=== PATIENT | male | born 1960 | race Caucasian/White ===

== ENCOUNTER 2016-10-28 13:08 | Emergency (ER) | payer BC ==
--- NOTE | 2016-10-28 14:48 | UC ---
Epistaxis Nasal HPI - HPI Summary HPI Summary: Pt had spontaneous R-sided nosebleed while awake this morning at 7am. Held a paper towel to it until it stopped about 5 minutes later. Close to noon today R nose bled again while pt was sitting at desk; denies blowing nose or picking at the time. Called [facility] and PCP, was unable to be seen today. Concerned as he has never had a spontaneous nosebleed before. Denies fevers, vomiting, rashes. No bleeding gums, bruising, blood in urine or stool. - History of Current Complaint Chief Complaint: UCGeneralIllness Stated Complaint: NOSEBLEEDS Time Seen by Provider: 10/28/16 14:17 Hx Obtained From: Patient Onset/Duration: Sudden Onset Timing: Minutes Severity Initially: Moderate Severity Currently: None Character: Heavy Alleviating Factor(s): Pressure Associated Signs And Symptoms: Negative: Bruising, Hematuria, Hematochezia, Nasal Discharge, Recent Abnormal Coagulation Studies - Allergies/Home Medications Allergies/Adverse Reactions: Allergies Allergy/AdvReac Type Severity Reaction Status Date / Time No Known Allergies Allergy Verified 10/28/16 13:53 Home Medications: Home Medications Imipramine HCl [Tofranil] 50 mg PO 10/28/16 [History] PMH/Surg Hx/FS Hx/Imm Hx Previously Healthy: Yes Psychological History Of: Reports: Anxiety - Surgical History Surgical History: Yes Surgery Procedure, Year, and Place: appy - Family History Known Family History: Negative: Blood Disorder - Social History Occupation: Employed Full-time Alcohol Use: Rare Substance Use Type: None Smoking Status (MU): Never Smoked Tobacco Review of Systems Constitutional: Negative Skin: Negative Eyes: Negative ENT: Epistaxis Respiratory: Negative Cardiovascular: Negative Gastrointestinal: Negative Genitourinary: Negative Motor: Negative Neurovascular: Negative Musculoskeletal: Negative Neurological: Negative Psychological: Negative All Other Systems Reviewed And Are Negative: Yes Physical Exam Triage Information Reviewed: Yes Appearance: Well-Appearing, No Pain Distress, Well-Nourished Vital Signs: Initial Vital Signs Temp 98.6 F 10/28/16 13:48 Pulse 102 10/28/16 13:48 Resp 20 10/28/16 13:48 BP 159/105 10/28/16 13:48 Pulse Ox 100 10/28/16 13:48 Vital Signs Reviewed: Yes Eye Exam: Normal Eyes: Positive: Conjunctiva Clear ENT Exam: Normal ENT: Positive: Normal ENT inspection, Hearing grossly normal, Pharynx normal, TMs normal, Other: - No septal hematoma, no site of bleeding noted. Dental Exam: Normal Neck exam: Normal Neck: Positive: Supple, Nontender, No Lymphadenopathy Respiratory Exam: Normal Respiratory: Positive: Chest non-tender, Lungs clear, Normal breath sounds, No respiratory distress, No accessory muscle use Cardiovascular Exam: Normal Cardiovascular: Positive: RRR - 90s, No Murmur Musculoskeletal Exam: Normal Neurological Exam: Normal Psychological Exam: Normal Skin Exam: Normal Epistaxis Nasal Course/Dx - Differential Dx/Diagnosis Provider Diagnoses: epistaxis Discharge - Discharge Plan Condition: Stable Disposition: HOME Patient Education Materials: Nosebleed (ED) Additional Instructions: I recommend you sleep at an incline tonight and apply petroleum jelly to both nostrils at bedtime for at least a week. Don't forcefully blow your nose or try to pick away any scabs or crusting. If you see bleeding in your gums, urine, stool, or unexplained bruising, please see your primary care provider right away.
[2016-10-28 14:51] VITALS: BP 150/88
== END 2016-10-28 14:50 | disposition home or self-care (01) ==
LOC: UCEAST 13:08
DX: R04.0 Epistaxis (principal)
CPT/HCPCS: 99202; G0463